=== PATIENT | male | born 1960 | race Caucasian/White ===

== ENCOUNTER 2018-06-16 03:39 | Emergency (ER) | payer BC ==
[2018-06-16] MEDS ORDERED: Ondansetron HCl/PF 4 MG/2 ML Vial ONE (04:05)
[2018-06-16 04:28] LABS: #Basophils 0.1 thou/uL (0.0-0.2); #Eosinphils 0.1 thou/uL (0.0-0.7); #Lymphocytes 0.9 thou/uL (1.20-3.40); #Monocytes 0.8 thou/uL (0.11-0.59); #Neutrophils 10.1 thou/uL (1.40-6.50); %Basophils 0.9 % (0.0-1.0); %Eosinophils 1.2 % (0.0-10.0); %Lymphocytes 7.6 % (21.0-51.0); %Monocytes 6.6 % (0.0-10.0); %Neutrophils 83.7 % (42.0-75.0); Hemoglobin 10.6 g/dL (14.0-18.0); Mean Corpuscular HGB CONC 34.6 g/dL (32.0-36.0); Mean Corpuscular Hemoglobin 35.5 pg (27.0-31.0); Mean Platelet Volume 7.3 fL (7.4-10.4); Platelet Count 326 thou/uL (130-400); RBC Distribution Width 11.8 % (11.5-14.5); Red Blood Cell (RBC) Count 2.99 mill/uL (4.70-6.10)
[2018-06-16 04:32] LABS: Bilirubin Moderate (Negative); Blood, Urine Negative (Negative); Clarity Clear (Clear); Glucose, Urine (Dipstick) Negative (Negative); Leukocyte Negative (Negative); Nitrite Negative (Negative); Protein, Urine (Dipstick) 30 mg/dL (Neg-Trace); Specific Gravity, Urine 1.015 (1.005-1.030); Urobilinogen > or = 8.0 mg/dL (0.2-1.0)
[2018-06-16 04:33] LABS: Anisocytosis SLIGHT = 6-15 cells (100X) (0-5/hpf); Hypochromia SLIGHT = 6-15 cells (100X) (0-5/hpf); MDiff Complete? YES; Macrocytosis SLIGHT = 6-15 cells (100X) (0-5/hpf); PLT Morphology Comment Appears Adequate; Poikilocytosis SLIGHT = 6-15 cells (100X) (0-5/hpf); Stomatocytes MODERATE= 6-15 cells (100X) (0-1/hpf)
[2018-06-16 04:39] LABS: ALT (SGPT) 48 U/L (8-55); AST (SGOT) 38 U/L (5-34); Albumin 3.3 g/dL (3.5-5.0); Alkaline Phosphatase 924 U/L (40-150); Anion Gap 15 mmol/L (10-20); BUN (Urea Nitrogen) 7 mg/dL (8.4-25.7); Bilirubin, Total 10.5 mg/dL (0.2-1.2); Calc. Creatinine Clearance 0 mL/min (70-130); Calcium 9.7 mg/dL (7.8-10.44); Carbon Dioxide 25 mmol/L (22-29); Chloride 91 mmol/L (98-107); Estimated GFR-MDRD Greater than 90; Globulin 3.7 g/dL (2.4-3.5); Glucose 146 mg/dL (70-105); Lipase 58 U/L (8-78); Potassium 3.3 mmol/L (3.5-5.1); Sodium 128 mmol/L (136-145)
[2018-06-16 04:40] LABS: Bacteria/HPF None Seen HPF (None Seen); Crystals/HPF 1+ AMORPH URATES HPF (Negative); RBC/HPF None Seen HPF (0-3); Squamous Epithelial 0-3 HPF (0-3); WBC/HPF 0-3 HPF (0-3)
[2018-06-16] MEDS ORDERED: Piperacillin/Tazobactam 3.375 GM VIAL ONE (08:01)
[2018-06-16] MEDS ORDERED: Sodium Chloride 0.9% 100 ML ONE (08:02)
--- NOTE | 2018-06-16 08:13 | CT ---
PRELIMINARY REPORT/[facility]/EMERGENCY AFTER HOURS PROCEDURE: EXAM: CT Abdomen and Pelvis With Intravenous Contrast EXAM DATE/TIME: 06/16/2018 5:30 AM CLINICAL HISTORY: 57 years old, male; Condition or disease; Cancer; Pancreas TECHNIQUE: Axial computed tomography images of the abdomen and pelvis with intravenous contrast. All CT scans at this facility use at least one of these dose optimization techniques: automated exposure control; mA and/or kV adjustment per patient size (includes targeted exams where dose is matched to clinical indication); or iterative reconstruction. Coronal and sagittal reformatted images were created and reviewed. CONTRAST: 96 ml of ISOVUE 370 administered intravenously. COMPARISON: No relevant prior studies available. FINDINGS: Lower thorax: There is a pulmonary parenchymal calcification consistent with remote granulomatous org anism exposure. Moderate centrilobular emphysematous changes are present. ABDOMEN: Liver: There are no focal liver lesions identified. Gallbladder and bile ducts: There is a right-sided internal/external biliary drain with pneumobilia a nd moderate intrahepatic biliary ductal dilatation. Pancreas: There is pancreatic ductal dilatation measuring up to 9 mm Pancreas parenchyma is not well- visualized. Spleen: The spleen is normal. Adrenals: Normal. No mass. Kidneys and ureters: The kidneys appear normal. Stomach and bowel: The stomach is normal. There is moderate colonic constipation. Bowel wall thickeni ng is noted possibly due to patient's ascites. Appendix: No evidence of appendicitis. PELVIS: Bladder: The bladder is normal. Reproductive: The prostate gland and seminal vesicles are normal. ABDOMEN and PELVIS: Intraperitoneal space: There is a small amount of ascites fluid present. Bones/joints: No acute fracture. No dislocation. Soft tissues: Unremarkable. Vasculature: The vasculature demonstrates diffuse moderate atherosclerotic calcification. Lymph nodes: Normal. No enlarged lymph nodes. IMPRESSION: There is a right-sided internal/external biliary drain with pneumobilia and moderate intrahepatic cyndie iary ductal dilatation. Correlate clinically for drain patency. Pancreatic ductal dilatation is also noted. Thank you for allowing us to participate in the care of your patient. Dictated and Authenticated by: Saud Bhatti MD 06/16/2018 6:21 AM Central Time ([place] & [place]) FINAL REPORT CT ABDOMEN AND PELVIS WITH IV CONTRAST: Date: 06/16/18 FINDINGS/IMPRESSION: I agree with the preliminary report given by Adam. POS: [facility]
[2018-06-16] MEDS ORDERED: Acetaminophen 325 MG TAB ONE (08:32)
[2018-06-16] MEDS ORDERED: Iopamidol 370 76% 100 ML VIAL ONE (09:00)
[2018-06-16] MEDS ORDERED: Vancomycin HCl 750 MG VIAL ONE (09:08)
--- NOTE | 2018-06-16 09:08 | RAD ---
PORTABLE CHEST 1 VIEW: Date: 06/16/18 Time: 0819 hours HISTORY: Pancreatic cancer, abdominal pain. FINDINGS: Comparison made with exam of 08/02/14. The heart size is normal. The lungs are expanded without focal areas of consolidation, pneumothorax, or pleural effusions. A calcified nodule in the left lower lobe and old left rib fracture is again se en. IMPRESSION: No acute process. POS: [facility]
[2018-06-16] MEDS ORDERED: Sodium Chloride 0.9% 250 ML 250 ML ONE (09:09)
== END 2018-06-16 09:16 | disposition short-term general hospital (02) ==
LOC: NAV ERS 03:39
DX: K83.1 Obstruction of bile duct (principal); E87.1 Hypo-osmolality and hyponatremia; R65.10 Systemic inflammatory response syndrome (SIRS) of non-infectious origin without acute organ dysfunction; C25.9 Malignant neoplasm of pancreas, unspecified; J44.9 Chronic obstructive pulmonary disease, unspecified; F17.210 Nicotine dependence, cigarettes, uncomplicated
CPT/HCPCS: 36415; 51798; 71045; 74177; 80053; 81003; 81015; 83605; 83690; 85025; 87040; 96361; 96365; 96375; 96376; J2270; J2405; J2543; J3370; J7050